=== PATIENT | female | born 1955 | race Caucasian/White ===

== ENCOUNTER 2025-05-03 13:23 | Outpatient (CLI) | payer MEDICARE, OTHER ==
--- NOTE | 2025-05-05 19:14 | RADIOLOGY REPORT ---
EXAM: MR MRI LUMBAR SPINE CLINICAL HISTORY: RADICULOPATHY, LUMBAR REGION COMPARISON: None TECHNIQUE: MRI of the lumbar spine was performed without contrast. FINDINGS: Vertebral body height is maintained. Vertebral alignment is anatomic. Vertebral marrow signal intensity is unremarkable. The conus medullaris is normal in position and signal intensity. L1-L2: No significant spinal canal or foraminal stenosis. L2-L3: Disc bulge with facet arthropathy. No significant spinal canal or foraminal stenosis. L3-L4: Disc bulge with facet arthropathy. No significant spinal canal or foraminal stenosis. L4-L5: Disc bulge with annular fissure and mild facet arthropathy. No significant spinal canal or foraminal stenosis. L5-S1: Disc bulge and facet arthropathy. No significant spinal canal or foraminal stenosis. No mass is identified within the lumbar spinal canal or paravertebral soft tissues. Cholelithiasis. IMPRESSION: Mild multilevel degenerative changes of the lumbar spine without significant spinal canal or foraminal stenosis. Cholelithiasis.
== END 2025-05-03 23:59 | disposition home or self-care (01) ==
LOC: MRI02 13:23
PROVIDERS: ATTEND Family Medicine Sports Medicine
DX: M51.17 Intervertebral disc disorders with radiculopathy, lumbosacral region (principal); M25.552 Pain in left hip; M77.9 Enthesopathy, unspecified; M47.27 Other spondylosis with radiculopathy, lumbosacral region; K80.20 Calculus of gallbladder without cholecystitis without obstruction
CPT/HCPCS: 72148